=== PATIENT | female | born 1975 | race Caucasian/White ===

== ENCOUNTER 2022-07-21 11:36 | Outpatient (REF) | payer OTHER, SELFPAY ==
[2022-07-21 14:31] LABS: MANUAL DIFF FLAG NO
[2022-07-21 14:37] LABS: Basophils Absolute Auto 0.1 X10*3/uL (0.0-0.2); Basophils Percent Auto 0.6 % (0-2); Eosinophils Absolute Auto 0.1 X10*3/uL (0.0-0.4); Eosinophils Percent Auto 1.4 % (0-4); Hemoglobin 13.4 g/dl (12.0-16.0); Imm Gran Abs Auto 0.04 X10*3/uL (0.00-0.03); Imm Gran Pct Auto 0.4 % (0.0-0.4); Lymphocytes Absolute Auto 2.9 X10*3/uL (1.2-4.9); Lymphocytes Percent Auto 28.6 % (20-40); Mean Corpuscular HGB Conc 32.7 g/dl (31.0-35.0); Mean Corpuscular Volume 82.7 fL (80.0-98.0); Mean Platelet Volume 9.8 fL (9.4-12.3); Monocytes Absolute Auto 0.8 X10*3/uL (0.1-1.2); Neutrophils Absolute Auto 6.2 x10*3/uL (2.0-8.3); Platelet Count 436 X10*3/uL (160-400); Red Blood Count 4.96 X10*6/uL (4.20-5.50); Red Cell Distribution Width 13.9 % (11.0-16.0); White Blood Count 10.2 X10*3/uL (4.8-10.8)
[2022-07-21 14:54] LABS: Alanine Aminotransferase 24 U/L (0-31); Albumin Level 4.5 g/dL (3.5-5.0); Alkaline Phosphatase 90 U/L (39-117); Anion Gap 17 (12-20); Aspartate Amino Transferase 18 U/L (5-31); Bilirubin Total 0.3 mg/dL (0.0-1.0); Blood Urea Nitrogen 9 mg/dL (9-16); Calcium 10.1 mg/dL (8.4-10.2); Carbon Dioxide 26 mmol/L (22-29); Chloride 101 mmol/L (96-108); Cholesterol 209 mg/dL; Estimated Glomerular Filt Rate > 60; Glucose Fasting 111 mg/dL (60-99); HDL Cholesterol 46 mg/dL; LDL Cholesterol Calculated 135 mg/dl; Potassium 4.4 mmol/L (3.3-5.1); Sodium 140 mmol/L (135-145); Total Protein 7.7 g/dL (6.5-8.0); Triglycerides 140 mg/dL
[2022-07-21 15:16] LABS: Free T4 (Free Thyroxine) 1.14 ng/dL (0.71-1.85); Thyroid Stimulating Hormone 1.97 uIU/mL (0.32-4.0); Vitamin D 25-OH Total 17.9 ng/mL (>30)
[2022-07-21 15:18] LABS: Erythrocyte Sedimentation Rate 13 MM/HR (0-20)
[2022-07-21 15:34] LABS: Estimated Average Glucose 137 mg/dL; Hemoglobin A1c % 6.4 %
[2022-07-22 08:32] LABS: Lutenizing Hormone 5.4 mIU/mL
== END 2022-07-21 11:37 | disposition home or self-care (01) ==
LOC: HO.HMGCLDS 11:36
PROVIDERS: PCP Internal Medicine Medical Oncology; Visit Provider Internal Medicine Medical Oncology
DX: I10 Essential (primary) hypertension (principal); R47.01 Aphasia; I63.9 Cerebral infarction, unspecified; G93.40 Encephalopathy, unspecified
CPT/HCPCS: 36415; 80053; 80061; 82306; 83001; 83002; 83036; 84439; 84443; 85025; 85652

== ENCOUNTER 2022-07-22 09:10 | Outpatient (REF) | payer OTHER, SELFPAY ==
[2022-07-24 03:52] LABS: Follicle Stimulating Hormone 9.9 mIU/mL
== END 2022-07-22 09:11 | disposition home or self-care (01) ==
LOC: HO.HMGCLDS 09:10
PROVIDERS: PCP Internal Medicine Medical Oncology; Visit Provider Internal Medicine Medical Oncology
DX: I10 Essential (primary) hypertension (principal); R47.01 Aphasia; I63.9 Cerebral infarction, unspecified; G93.40 Encephalopathy, unspecified
CPT/HCPCS: 36415; 83001

== ENCOUNTER 2022-08-04 13:05 | Outpatient (REF) | payer OTHER, SELFPAY ==
--- NOTE | 2022-08-04 13:10 | EEG_ITS ---
The waking background activity consists of a moderate voltage, 10-hertz posterior alpha frequency that is seen symmetrically and attenuates well with eye opening while low-voltage fast frequencies predominate anteriorly. Photic stimulation is without activation. Hyperventilation was omitted. No focal, lateralizing, or paroxysmal discharges seen. IMPRESSION: This waking EEG is within normal limits. MD BRENTON Hamilton/FAVIAN / [phone]
== END 2022-08-04 13:06 | disposition home or self-care (01) ==
LOC: HO.NEURO 13:05
PROVIDERS: Visit Provider Internal Medicine Medical Oncology
DX: I63.9 Cerebral infarction, unspecified (principal); G93.40 Encephalopathy, unspecified
CPT/HCPCS: 95816

== ENCOUNTER 2022-08-18 15:43 | Outpatient (REF) | payer OTHER, SELFPAY ==
--- NOTE | ~2022-08-18 | MM_ITS ---
EXAMINATION: MM SCREENING DIGITAL BREAST TOMOSYNTHESIS, BILATERAL CLINICAL INFORMATION: Screening. Asymptomatic. Age 47. No prior breast imaging. The lifetime risk of breast cancer based on the Tyrer-Cuzick Model is 7%. COMPARISON: None (current study represents initial baseline exam). TECHNIQUE: Digital breast tomosynthesis is performed in both the craniocaudal and mediolateral oblique views along with computer-aided detection (CAD). Synthesized 2D images are generated from the tomosynthesis. FINDINGS: The breasts are almost entirely fatty (ACR BI-RADS breast composition Category a). There is no significant mass. No architectural abnormality or abnormal calcifications. The axilla are and skin contours are unremarkable. MM/MM tomosynthesis screening BI IMPRESSION: No mammographic evidence of malignancy. ASSESSMENT: BI-RADS 1: Negative RECOMMENDATION: Routine annual mammography screening. This patient's information was entered into a reminder system with a target due date for their next mammogram.
== END 2022-08-18 15:44 | disposition home or self-care (01) ==
LOC: HO.MAMMO 15:43
PROVIDERS: PCP Internal Medicine Medical Oncology; Visit Provider Internal Medicine Medical Oncology
DX: Z12.31 Encounter for screening mammogram for malignant neoplasm of breast (principal)
CPT/HCPCS: 77063; 77067

== ENCOUNTER 2023-01-20 06:55 | Outpatient (REF) | payer OTHER, SELFPAY ==
[2023-01-20 11:20] LABS: MANUAL DIFF FLAG NO
[2023-01-20 11:40] LABS: Basophils Absolute Auto 0.1 X10*3/uL (0.0-0.2); Basophils Percent Auto 0.8 % (0-2); Eosinophils Absolute Auto 0.2 X10*3/uL (0.0-0.4); Eosinophils Percent Auto 2.1 % (0-4); Hematocrit 38.1 % (37.0-47.0); Hemoglobin 12.2 g/dl (12.0-16.0); Imm Gran Abs Auto 0.03 X10*3/uL (0.00-0.03); Imm Gran Pct Auto 0.3 % (0.0-0.4); Lymphocytes Percent Auto 21.7 % (20-40); Mean Corpuscular Hemoglobin 27.2 pg (27.0-33.0); Mean Corpuscular Volume 84.9 fL (80.0-98.0); Mean Platelet Volume 10.8 fL (9.4-12.3); Monocytes Absolute Auto 0.7 X10*3/uL (0.1-1.2); Monocytes Percent Auto 7.2 % (2-11); Neutrophils Absolute Auto 6.1 x10*3/uL (2.0-8.3); Neutrophils Percent Auto 67.9 % (45-73); Platelet Count 354 X10*3/uL (160-400); Red Blood Count 4.49 X10*6/uL (4.20-5.50); Red Cell Distribution Width 14.6 % (11.0-16.0)
[2023-01-20 11:58] LABS: Estimated Average Glucose 137 mg/dL; Hemoglobin A1c % 6.4 %
[2023-01-20 12:30] LABS: Alanine Aminotransferase 14 U/L (0-31); Albumin Level 3.8 g/dL (3.5-5.0); Alkaline Phosphatase 71 U/L (39-117); Anion Gap 11 (12-20); Aspartate Amino Transferase 9 U/L (5-31); Bilirubin Total 0.3 mg/dL (0.0-1.0); Blood Urea Nitrogen 11 mg/dL (9-16); Calcium 9.1 mg/dL (8.4-10.2); Carbon Dioxide 28 mmol/L (22-29); Chloride 105 mmol/L (96-108); Cholesterol 176 mg/dL; Estimated Glomerular Filt Rate > 60; Glucose Fasting 138 mg/dL (60-99); HDL Cholesterol 45 mg/dL; LDL Cholesterol Calculated 108 mg/dl; Potassium 4.3 mmol/L (3.3-5.1); Sodium 140 mmol/L (135-145); Thyroid Stimulating Hormone 2.92 uIU/mL (0.32-4.0); Total Protein 6.4 g/dL (6.5-8.0); Triglycerides 117 mg/dL
[2023-01-22 03:39] LABS: Lutenizing Hormone 0.8 mIU/mL
== END 2023-01-20 06:56 | disposition home or self-care (01) ==
LOC: HO.HMGCLDS 06:55
PROVIDERS: PCP Internal Medicine Medical Oncology; Visit Provider Internal Medicine Medical Oncology
DX: E11.9 Type 2 diabetes mellitus without complications (principal); E23.6 Other disorders of pituitary gland; G93.40 Encephalopathy, unspecified; R51.9 Headache, unspecified
CPT/HCPCS: 36415; 80053; 80061; 83001; 83002; 83036; 83735; 84443; 85025

== ENCOUNTER 2023-01-22 07:12 | Outpatient (REF) | payer OTHER, SELFPAY ==
[2023-01-22 12:22] LABS: Cortisol Random 10.9 ug/dL
[2023-01-24 02:37] LABS: Prolactin 35.4 ng/mL
== END 2023-01-22 07:13 | disposition home or self-care (01) ==
LOC: HO.HMGCLDS 07:12
PROVIDERS: PCP Internal Medicine Medical Oncology; Visit Provider Internal Medicine Medical Oncology
DX: E23.6 Other disorders of pituitary gland (principal)
CPT/HCPCS: 36415; 82533; 84146

== ENCOUNTER → 2023-02-02 11:03 | Outpatient (BNVA) | payer OTHER, SELFPAY | PROVIDERS: PCP Internal Medicine Medical Oncology; Visit Provider Internal Medicine Endocrinology, Diabetes & Metabolism ==

== ENCOUNTER 2023-02-17 15:20 | Outpatient (REF) | payer OTHER, SELFPAY ==
[2023-02-17 16:27] LABS: Rheumatoid Factor < 13.0 IU/mL (<15.0)
[2023-02-17 16:44] LABS: Erythrocyte Sedimentation Rate 11 MM/HR (0-20)
[2023-02-20 14:03] LABS: Anti Nuclear Antibody Screen NEGATIVE (NEGATIVE)
[2023-02-23 14:18] LABS: DNAds, Crithidia Antibody Negative (Negative)
== END 2023-02-17 15:21 | disposition home or self-care (01) ==
LOC: HO.LAB 15:20
PROVIDERS: PCP Internal Medicine Medical Oncology; Visit Provider Psychiatry & Neurology Neurology
DX: F45.0 Somatization disorder (principal)
CPT/HCPCS: 36415; 85652; 86038; 86255; 86431

== ENCOUNTER 2023-03-11 07:51 | Outpatient (REF) | payer OTHER, SELFPAY ==
[2023-03-18 08:48] LABS: Adrenocorticotropic Hormone 9 pg/mL (6-50)
[2023-03-18 15:14] LABS: Cortisol 60 Minute 32.7 mcg/dL; Cortisol Baseline 27.8 mcg/dL
== END 2023-03-11 07:52 | disposition home or self-care (01) ==
LOC: HO.MDS 07:51
PROVIDERS: Visit Provider Internal Medicine Endocrinology, Diabetes & Metabolism
DX: E23.6 Other disorders of pituitary gland (principal)
CPT/HCPCS: 36415; 82024; 82533; 96374; J0834

== ENCOUNTER 2023-03-30 11:15 | Outpatient (AMB) | payer OTHER, SELFPAY ==
[2023-03-30 11:18] VITALS: BP 132/88; PULSE 76; BMI 39.0
--- NOTE | 2023-03-30 11:18 | A.OFFVIS_ITS ---
Intake Vital Signs 03/30/23 11:18 Height 5 ft 5.59 in Weight 238 lb 12.17 oz BMI 39.0 BP 132/88 Blood Pressure Location Rt brachial Position Sitting Pulse 76 Pulse Source Pulse Oximeter Intake Visit Reasons: Empty Sella Intake Note: Patient present for Empty Sella Follow up visit. Drug Enforcement Agent Required: No Accompanied by: Self / Same As Patient Allergies sulfamethoxazole [From BACTRIM] Allergy (Severe, Verified 03/30/23 11:20) HIVES trimethoprim [From BACTRIM] Allergy (Severe, Verified 03/30/23 11:20) HIVES amoxicillin Allergy (Intermediate, Verified 03/30/23 11:20) rash Penicillins [PENICILLINS] Allergy (Intermediate, Verified 03/30/23 11:20) HIVE promethazine [From PHENERGAN] Allergy (Intermediate, Verified 03/30/23 11:20) AGITATION plastic tape Allergy (Mild, Uncoded 03/30/23 11:20) blisters HPI HPI Comments History of Present Illness Details This is a 48-year-old female referred to endocrinology for evaluation of empty sella. Patient was discovered to have a partially empty sella on MRI. She denies any symptoms of adrenal insufficiency. Her a.m. cortisol level was sufficient. She denies any symptoms of hypothyroidism. has gained weight had uterine ablation 15 yrs ago She denies any galactorrhea has slightly elevated prolactin. An estradiol level was low as well. [facility] Medical History (Updated 02/02/23 @ 11:19 by Joe Robles MD) Empty sella Surgical History History of endometrial ablation History of surgery Hx of cholecystectomy Hx of right knee surgery Hx of tonsillectomy Family History Mother Hypothyroidism High blood pressure Father Diabetes CPD (cephalo-pelvic disproportion) Sleep apnea Social History Alcohol intake: never Patient Tobacco Use Status: Never used Tobacco Substance Use Type: Marijuana Physical Exam Vital Signs: BMI result Body Mass Index 39.0 Assessment & Plan Assessment & Plan (1) Empty sella: Code(s): E23.6 - Other disorders of pituitary gland Plan: This is a 48-year-old white female found to have a partially empty sella syndrome on MRI. . She has slightly elevated prolactin level is causing suppression of the gonadal axis. There were no masses seen on the MRI in the pituitary. Plan is to get a 24 hour urine for free cortisol creatinine to rule out Edilson syndrome. Assuming above is normal will start Dostinex 0.25 mg twice a week the lower prolactin and hopefully restore estuardo levels. I did tell the patient to follow up with Neurology as well. I went over side effects of cabergoline she has nausea, lightheadedness and rare risk of heart valve problems as well as compulsive disorder Orders: Orders Cortisol, Free 24Hr Urine Today E23.6 - Other disorders of pituitary gland Creatinine, 24 Hr Group Today E23.6 - Other disorders of pituitary gland Adrenocorticotropic Hormone Today E23.6 - Other disorders of pituitary gland Medications: New cabergoline 0.25 mg (1/2 x 0.5 mg) PO 2XW 10 tabs 4RF Coding Level of Care Code Est Pt Level 3 (38865) Diagnoses Empty sella E23.6
== END 2023-03-30 12:07 | disposition home or self-care (01) ==
PROVIDERS: PCP Internal Medicine Medical Oncology; Visit Provider Internal Medicine Endocrinology, Diabetes & Metabolism
DX: E23.6 Other disorders of pituitary gland (principal)
CPT/HCPCS: 99213

== ENCOUNTER → 2023-03-30 11:15 | Outpatient (BNVA) | payer OTHER, SELFPAY | PROVIDERS: Visit Provider Internal Medicine Endocrinology, Diabetes & Metabolism ==

== ENCOUNTER 2023-04-03 08:36 | Outpatient (REF) | payer OTHER, SELFPAY ==
[2023-04-03 10:41] LABS: Creatinine, mg/dL 55.51
[2023-04-04 07:16] LABS: Creatinine, 24Hr Urine 1.5 G/Day (1.0-2.0); Total Volume 24 Hour Urine 2725 mL
[2023-04-09 14:39] LABS: Adrenocorticotropic Hormone 11 pg/mL (6-50)
[2023-04-12 12:08] LABS: Cortisol Free, 24 Hr Urine 40.7 mcg/24 h (4.0-50.0); Creatinine, 24 Hr Urine 1.53 g/24 h (0.50-2.15); Total Volume, 24 Hr Urine 2725 mL
== END 2023-04-03 08:37 | disposition home or self-care (01) ==
LOC: HO.LAB 08:36
PROVIDERS: PCP Internal Medicine Medical Oncology; Visit Provider Internal Medicine Endocrinology, Diabetes & Metabolism
DX: E23.6 Other disorders of pituitary gland (principal)
CPT/HCPCS: 36415; 82024; 82530; 82570

== ENCOUNTER 2023-05-20 16:32 | Outpatient (REF) | payer OTHER, SELFPAY ==
[2023-05-24 09:59] LABS: Ceruloplasmin 28 mg/dL (18-53)
[2023-06-04 19:33] LABS: Copper RBC 0.69 mg/L (0.53-0.91)
== END 2023-05-20 16:33 | disposition home or self-care (01) ==
LOC: HO.LAB 16:32
PROVIDERS: PCP Internal Medicine Medical Oncology; Visit Provider Psychiatry & Neurology Neurology
DX: G93.40 Encephalopathy, unspecified (principal)
CPT/HCPCS: 36415; 82390; 82525

== ENCOUNTER 2023-09-21 07:42 | Emergency (ER) | payer OTHER, SELFPAY ==
--- NOTE | ~2023-09-21 | MR_ITS ---
EXAMINATION: MR BRAIN WITHOUT CONTRAST CLINICAL INFORMATION: Right arm weakness. Rule out stroke. COMPARISON: None available. TECHNIQUE: Multiplanar, multisequence imaging of the brain was performed without intravenous contrast. FINDINGS: There is no acute infarction, hemorrhage, mass, or extra-axial fluid collection. The ventricles are normal in size without hydrocephalus. The brain parenchyma signal appears essentially normal. The sella is partially empty. The major arterial flow voids appear preserved at the skull base. The orbital contents appear normal. Incidentally noted is abnormal soft tissue thickening within the nasopharynx. Nonenlarged retropharyngeal lymph nodes are also present bilaterally. MR/MR head/brain wo con IMPRESSION: No acute intracranial abnormality identified. Specifically, no infarct or mass is seen. Incidentally noted abnormal soft tissue thickening within the nasopharynx which may represent hypertrophy of the adenoids which is unexpected for a patient of this age. Small retropharyngeal lymph nodes are also present bilaterally. ENT follow-up/direct visual inspection is recommended.
[2023-09-21 07:48] VITALS: BP 169/98; PULSE 73; RESP 19; TEMP 36.3; O2SAT 98; BMI 39.5
--- NOTE | 2023-09-21 10:00 | ED.GENADULT ---
HPI - General Adult General Chief complaint: General Medical Stated complaint: R Arm Numbness Time Seen by Provider: 09/21/23 09:21 Source: patient and other (Patient's PCP, Dr. Rivera) Mode of arrival: ambulatory Limitations: no limitations History of Present Illness HPI narrative: 48-year-old female followed by our neurologist Dr. Talavera for possible TIA versus stroke versus seizure who presents emergency department for evaluation right wrist pain, numbness and weakness. I did obtain the emergency department record from [facility] dated 09/18/2023 (3 days prior). The patient was seen at [facility] on 09/18/2023 for evaluation of sudden onset of right forearm wrist and hand pain which started at 01:00 hours while she was sleeping in bed. She denied any trauma, she does not believe that she was sleeping in an unusual position. The ED provider did consult the neurologist who suggested a CT of the chest to rule out possible mass that could be applying pressure to the brachial plexus but this was negative. Patient also had a CT scan of the head and neck which was unremarkable. She was also ruled out for DVT. She was diagnosed with cervical radiculopathy and started on Medrol Dosepak 4 mg and oxycodone. The patient states that since starting the steroids she now has a pins and needle sensation that is returning to her forearm and wrist but she still has significant pain and limited range of motion of her wrist and hand secondary to discomfort. She also states that she is having severe headache which is consistent with her headache syndrome. This is not been relieved by naproxen or by the oxycodone that she has been taking. Patient was seen by Dr. Dwyer who advised her to go to the emergency department for evaluation and possible MRI. Related Data Home Medications Medication Instructions Recorded Confirmed loratadine 10 mg tablet (Allergy 10 mg PO DAILY 07/04/21 Relief (loratadine)) topiramate 25 mg tablet 25 mg PO DAILY 03/30/23 Previous Rx's Medication Instructions Recorded cabergoline 0.5 mg tablet 0.25 mg (1/2 x 0.5 mg) PO 2XW #10 03/30/23 tabs morphine 15 mg immediate release 15 mg PO Q4-6H PRN pain #10 tabs 09/21/23 tablet ondansetron 4 mg disintegrating 4 mg PO Q6-8H PRN nausea and 09/21/23 tablet vomiting #14 tabs Allergies Allergy/AdvReac Type Severity Reaction Status Date / Time sulfamethoxazole Allergy Severe HIVES Verified 09/21/23 07:47 [From BACTRIM] trimethoprim [From BACTRIM] Allergy Severe HIVES Verified 09/21/23 07:47 amoxicillin Allergy Intermediate rash Verified 09/21/23 07:47 Penicillins [PENICILLINS] Allergy Intermediate HIVE Verified 09/21/23 07:47 promethazine [From PHENERGAN] Allergy Intermediate AGITATION Verified 09/21/23 07:47 plastic tape Allergy Mild blisters Uncoded 09/21/23 07:47 Review of Systems Review of Systems: Yes all other systems are reviewed and are negative [facility] Past Medical History [facility] Narrative: Past medical history: Patient states that she sees our neurologist Dr. Talavera is being evaluated for possible stroke verses TIA versus seizures. She is taking topiramate but Dr. Lutz advised to stop this medication yesterday. She does have chronic headache which she takes naproxen and another medication for which she can not recall the name of at this time. She denies tobacco and alcohol use. She does smoke marijuana daily for her headaches. Onset Date is defined in the Problem List Problems that require an onset date and time if occurred within 24 hrs of arrival to the ED Aortic Dissection and Rupture; Neurologic impairment; Cardiopulmonary Arrest; Endotracheal Intubation; Insertion or Replacement of Mechanical Circulatory Assist Device Medical History (Updated 09/21/23 @ 13:47 by Neo Perez MD) Empty sella Surgical History (Updated 07/13/23 @ 15:15 by Maddy Tineo) Hx of tonsillectomy History of surgery Hx of right knee surgery History of endometrial ablation Hx of cholecystectomy Family History Family History (System 07/13/23 @ 15:15 by Maddy Tineo) Mother Hypothyroidism High blood pressure Father Diabetes CPD (cephalo-pelvic disproportion) Sleep apnea Social History Social History (System 07/13/23 @ 15:15 by Maddy Tineo) Alcohol intake: never Patient Tobacco Use Status: Never used Tobacco Smoked in Last 30 Days: No Use of substances other than those prescribed or required for medical reasons: No Substance Use Type: Marijuana Advance Directives: No Advance Directives Information Provided: Yes Patient : No Physical Exam ED Vital Signs: Vital Signs - 24 hr 09/21/23 07:48 09/21/23 13:05 Temperature 97.4 F 96.6 F L Pulse Rate 73 59 Respiratory Rate 19 16 Blood Pressure 169/98 H 185/101 H Pulse Oximetry 98 96 Oxygen Delivery Method Room Air Room Air BMI result Body Mass Index 39.5 Vital signs revealed an elevated blood pressure of 169/98 otherwise unremarkable Exam General: Awake, alert in no distress Head: Normocephalic, atraumatic. No tenderness palpation of the temporal regions of her scalp EENT: PERRL, Lids normal, sclera normal, conjunctiva normal, nose normal , ears normal, throat without erythema or exudates Neck: Supple, no adenopathy, Lung: breath sounds symmetric, no wheezing, rales or rhonchi Chest: symmetric movement, nontender Heart: regular rate and rhythm, normal S1, S2 no murmurs or rubs Abdomen: soft, non-tender, nondistended, normal bowel sounds Neuro: General: Awake and alert, answers all questions appropriately, oriented to person and place Cranial nerves: 2 through 12 are intact Strength: Left upper extremity: normal Right upper extremity: Patient is able to lift both arms up against gravity she is able to supinate and pronate both arms without difficulty. She has pain with passive extension of the right wrist and passive movement of the fingers. Patient does not actively flex or extend her wrist or finger secondary to pain. She does have tenderness with palpation from her mid forearm to her wrist. Skin is normal with no erythema, increased warmth or lesion Medications Administered Discontinued Medications Generic Name Dose Route Start Last Admin Trade Name Kennethq PRN Reason Stop Dose Admin Diphenhydramine HCl 50 mg 09/21/23 10:09/21/23 10:50 Diphenhydramine Hcl 50 Mg/Ml Vial IVPUSH 09/21/23 10:05 50 mg ONCE STA Administration Sodium Chloride 1,000 mls @ 999 mls/hr 09/21/23 10:01 09/21/23 11:51 Ns IV 09/21/23 11:01 Infused .Q1H1M STA Infusion Ketorolac Tromethamine 15 mg 09/21/23 10:04 09/21/23 10:50 Ketorolac Tromethamine 15 Mg/Ml Vial IVPUSH 09/21/23 10:05 15 mg ONCE STA Administration Metoclopramide HCl 10 mg 01/09/24 10:04 09/21/23 10:50 Metoclopramide Hcl 10 Mg/2 Ml Vial IVPUSH 09/21/23 10:05 10 mg ONCE STA Administration Morphine Sulfate 4 mg 09/21/23 13:18 09/21/23 13:27 Morphine Sulfate 4 Mg/Ml Cartridge IVPUSH 09/21/23 13:19 4 mg ONCE STA Administration Protocol Medical Decision Making Medical Decision Making MDM Narrative: 48-year-old female history of nonspecific headache, being evaluated by our neurologist Dr. Alcantar for possible stroke versus TIA versus seizure who was seen at [facility] 3 days prior for sudden onset right wrist and hand pain with numbness in the wrist and hand with pain worse with movement. Patient is also complaining of a headache this is consistent with her chronic headache syndrome. Patient did have extensive workup at [facility] which included CT scan of the head and neck which was negative, CT scan of the chest which revealed no brachial plexus mass and normal laboratory evaluation. Patient was seen by her PCP and referred to the emergency department for evaluation and possible MRI of the brain to rule out stroke. Patient's vital signs did reveal an elevated blood pressure otherwise unremarkable. Patient seems to have symptoms there limited to her hand wrist and mid forearm which I do not think is consistent with a stroke. The patient states that since starting methylprednisolone at [facility] has had a return of pins and needle sensation in her wrist and forearm but is still having pain with movement. She also has a severe headache which is not relieved by naproxen oxycodone. I ordered the following evaluation: CBC, CMP, PTT, CK, ESR, CRP The patient's headache will be treated with Toradol 15 mg IV, Reglan 10 mg IV, Benadryl 50 mg IV and normal saline x1 L At this time, I do not know if her symptoms are consistent with a stroke and a more consistent with a peripheral neuropathy. I did discuss the patient's presentation with her neurologist, Dr. Talavera, he saw the patient in the emergency department and is requesting an MRI of the brain to rule out frontal stroke. 13:37 Patient's laboratory evaluation was unremarkable including normal ESR and CRP. CT scan of the brain did not reveal any stroke which is reassuring. There is an incidental findings soft tissue thickening within the nasopharynx which may represent hypertrophy of the adenoids which is unexpected for a patient of this age. Small retropharyngeal lymph nodes are also present bilaterally. ENT follow-up/direct visual inspection is recommended . Differential Diagnosis Differential Diagnoses: The differential diagnosis associated with the presentation includes Differential diagnosis includes but is not limited to musculoskeletal injury, cervical radiculopathy, peripheral neuropathy Admission/Observation Consideration of admission/observation: Escalation of care including admission/observation considered Consult Healthcare Provider Management of the patient was discussed with: [employer]er (Neurology, Dr. Talavera) Lab Data MDM Lab Attestation statement: I reviewed the patient's lab results. My interpretation patient's laboratory evaluation is as follows: WBCs elevated 18,200-this is most likely secondary to methylprednisolone. ESR was normal. CRP was normal at 0.39. CK was normal at 21. CMP was unremarkable. 09/21/23 10:44 09/21/23 10:44 Labs: Lab Results 09/21/23 Range/Units 10:44 WBC 18.2 H (4.8-10.8) X10*3/uL RBC 4.66 (4.20-5.50) X10*6/uL Hgb 12.7 (12.0-16.0) g/dl Hct 39.2 (37.0-47.0) % MCV 84.1 (80.0-98.0) fL MCH 27.3 (27.0-33.0) pg MCHC 32.4 (31.0-35.0) g/dl RDW 14.0 (11.0-16.0) % Plt Count 381 (160-400) X10*3/uL MPV 9.9 (9.4-12.3) fL Immature Gran % (Auto) 1.2 H (0.0-0.4) % Neut % (Auto) 77.8 H (45-73) % Lymph % (Auto) 13.8 L (20-40) % Monona % (Auto) 6.8 (2-11) % Eos % (Auto) 0.1 (0-4) % Baso % (Auto) 0.3 (0-2) % Lymph # (Auto) 2.5 (1.2-4.9) X10*3/uL Monona # (Auto) 1.2 (0.1-1.2) X10*3/uL Eos # (Auto) 0.0 (0.0-0.4) X10*3/uL Baso # (Auto) 0.1 (0.0-0.2) X10*3/uL Abs Immat Gran (auto) 0.21 H (0.00-0.03) X10*3/uL Absolute Neuts (auto) 14.2 H (2.0-8.3) x10*3/uL Absolute Nucleated RBC 0.000 (0.0-0.012) X10*3/uL Nucleated RBC % (auto) 0.0 (0.0-0.2) /100WBC ESR 8 (0-20) MM/HR APTT 28.2 (26.0-36.4) SEC Sodium 140 (135-145) mmol/L Potassium 4.0 (3.3-5.1) mmol/L Chloride 108 (96-108) mmol/L Carbon Dioxide 23 (22-29) mmol/L Anion Gap 13 (12-20) BUN 16 (9-16) mg/dL Creatinine 0.72 (0.5-1.4) mg/dL Estim Creat Clear Calc 114.8 Estimated GFR > 60 Random Glucose 114 (60-115) mg/dL Calcium 9.3 (8.4-10.2) mg/dL Total Bilirubin 0.2 (0.0-1.0) mg/dL AST 13 (5-31) U/L ALT 16 (0-31) U/L Alkaline Phosphatase 74 (39-117) U/L Total Creatine Kinase 21 L (26-140) U/L C-Reactive Protein 0.39 (< or = 0.50) mg/dL Total Protein 7.4 (6.5-8.0) g/dL Albumin 4.1 (3.5-5.0) g/dL Radiology Impression Discussion of test interpretation with radiology: I have reviewed the radiologist's reading. Radiologist Impression: MR head/brain wo con IMPRESSION: No acute intracranial abnormality identified. Specifically, no infarct or mass is seen. Incidentally noted abnormal soft tissue thickening within the nasopharynx which may represent hypertrophy of the adenoids which is unexpected for a patient of this age. Small retropharyngeal lymph nodes are also present bilaterally. ENT follow-up/direct visual inspection is recommended. Dictated By: LINDSEY CUADRA MD Independent Historian Clinical information obtained from an independent historian. History obtained from or confirmed by: Spouse External Record Review External record reviewed: Outpatient record (ED note from [facility] emergency depart) Prescription Management I considered prescription management with: Pain Medication Discharge Plan Discharge Clinical Impression: Right wrist pain, Right hand pain, Headache Patient Disposition: Home, Self-Care Additional Instructions: Your blood work was unremarkable. The MRI of your brain did not reveal any stroke which is reassuring. At this time I suspect that the symptoms in your right wrist and arm are due to the pinched nerve in your forearm which should improve with the oral steroids prescribed from [facility]. Stop taking oxycodone. Take morphine 15 mg pills, 1 pill every 6 hours as needed for pain. This medication will make you sleepy, do not drive or work while taking this medication. Morphine is a narcotic medication and can be addicting. If you are concerned about addiction you can ask the pharmacist for less pills or do not get this prescription filled. Take Zofran ODT 4 mg pills, 1 pill dissolved in your mouth every 8 hours as needed for nausea and vomiting. Follow-up with your doctor in 2 days. Please return to the emergency department if your symptoms get worse or if you develop any symptoms that are concerning to you. The MRI did reveal an incidental findings and the radiologist recommended that you follow-up with the ENT, you should discuss this with Dr. Lutz. The radiology impression is below: MR head/brain wo con IMPRESSION: No acute intracranial abnormality identified. Specifically, no infarct or mass is seen. Incidentally noted abnormal soft tissue thickening within the nasopharynx which may represent hypertrophy of the adenoids which is unexpected for a patient of this age. Small retropharyngeal lymph nodes are also present bilaterally. ENT follow-up/direct visual inspection is recommended. Dictated By: LINDSEY CUADRA MD Prescriptions: New morphine 15 mg tablet 15 mg PO Q4-6H PRN (Reason: pain) Qty: 10 0RF Rx Instructions: The patient may ask for partial fill; Partial Fill upon patient request. ondansetron 4 mg tablet,disintegrating 4 mg PO Q6-8H PRN (Reason: nausea and vomiting) Qty: 14 0RF No Action loratadine [Allergy Relief (loratadine)] 10 mg tablet 10 mg PO DAILY topiramate 25 mg tablet 25 mg PO DAILY cabergoline 0.5 mg tablet 0.25 mg PO 2XW Qty: 10 4RF
[2023-09-21] MEDS: diphenhydrAMINE HCL 50 MG/ML VIAL IVPUSH (10:50)
[2023-09-21] MEDS: 0.9 % Sodium Chloride 1,000 ML 999 ML IV (10:50)
[2023-09-21] MEDS: Metoclopramide HCl 10 MG/2 ML VIAL IVPUSH (10:50)
[2023-09-21] MEDS: Ketorolac Tromethamine 15 MG/ML VIAL IVPUSH (10:50)
--- NOTE | 2023-09-21 10:50 | PC.NURSE ---
Dr. Palacio bedside assessing pt at this time. 20gIV placed in the left AC - labs drawn and sent to lab. medication administered per provider order. pt's partner for support at this time.
--- NOTE | 2023-09-21 10:51 | P.CNNE_ITS ---
History of Present Illness Data of Consult Service Date: 09/21/23 Primary Care Provider: Joe Dwyer MD [facility] Reason for consult: Right hand weakness 48 years old woman who came to [facility] on September 18 with complaints of severe right hand for arm wrist pain and weakness. She woke up with this. She was evaluated with a CT of brain and neck and no problem was noted. She was not having any cold or flu-like illness. With no particular diagnosis, she saw her primary care physician yesterday and with same complaints sent to emergency room for further evaluation. Her main concern at this time was right hand weakness stating that she was not able to move right hand at all. There was no history of recent trauma. Review of Systems Review of Systems: As in HPI [facility] Past Medical History Medical History (Updated 09/21/23 @ 10:58 by Nicolette Talavera MD) Empty sella Family History Family History (System 07/13/23 @ 15:15 by Maddy Tineo) Mother Hypothyroidism High blood pressure Father Diabetes CPD (cephalo-pelvic disproportion) Sleep apnea Surgical History Surgical History (Updated 07/13/23 @ 15:15 by Maddy Tineo) Hx of tonsillectomy History of surgery Hx of right knee surgery History of endometrial ablation Hx of cholecystectomy Social History Social History (System 07/13/23 @ 15:15 by Maddy Tieno) Alcohol intake: never Patient Tobacco Use Status: Never used Tobacco Substance Use Type: Marijuana Advance Directives: No Advance Directives Information Provided: Yes Meds Allergies Allergy/AdvReac Type Severity Reaction Status Date / Time sulfamethoxazole Allergy Severe HIVES Verified 09/21/23 07:47 [From BACTRIM] trimethoprim [From BACTRIM] Allergy Severe HIVES Verified 09/21/23 07:47 amoxicillin Allergy Intermediate rash Verified 09/21/23 07:47 Penicillins [PENICILLINS] Allergy Intermediate HIVE Verified 09/21/23 07:47 promethazine [From PHENERGAN] Allergy Intermediate AGITATION Verified 09/21/23 07:47 plastic tape Allergy Mild blisters Uncoded 09/21/23 07:47 Active Medications: Current Medications Sodium Chloride (Ns) 1,000 mls @ 999 mls/hr IV .Q1H1M STA Stop: 09/21/23 11:01 Last Admin: 09/21/23 10:50 Dose: 999 mls/hr Home Medications Medication Instructions Recorded Confirmed Last Taken Type loratadine 10 mg tablet (Allergy 10 mg PO DAILY 07/04/21 Unknown History Relief (loratadine)) topiramate 25 mg tablet 25 mg PO DAILY 03/30/23 Unknown History Physical Exam Vital Signs: Vital Signs: Last Vital Signs Temp 97.4 F 09/21/23 07:48 Pulse 73 09/21/23 07:48 Resp 19 09/21/23 07:48 BP 169/98 H 09/21/23 07:48 Pulse Ox 98 09/21/23 07:48 O2 Del Method Room Air 09/21/23 07:48 BMI result Body Mass Index 39.5 Neuro: Other: She is alert and awake with normal spontaneity of speech fluency comprehension and affect. Face is symmetrical. Visual arce are full. Right arm was in sling. I removed the sling and she was able to move her right arm at shoulder and elbow. She was able to lift her arm above her head up to 90 degrees. Elbow flexion and extension were mildly weak. She did not provide any movement of fingers right hand infection or extension. She stated that right hand was numb. Deep tendon reflexes were trace to absent with flexion plantars. Assessment and Plan (1) Hand weakness: Status: Acute 48 years old woman who woke up with severe right upper extremity pain and hand weakness. CTA of brain and neck done at [facility] have not revealed any significant abnormality. Presently she provide is no movement and right hand. Differential diagnosis would include cervical radiculopathy, though no significant lesion was noted and cervical spine CT scan, or plexopathy ([place] syndrome), which would require EMG nerve conduction study. Because of atypical presentation, I would also recommend doing a brain MRI to rule out small left frontal stroke that sometime could present with hand weakness but that would not explain the pain. If MRIs okay, she should have EMG nerve conduction study of right upper extremity in outpatient setting for further evaluation and PT OT consultation for weakness. He should use a brace in right hand. I am not sure if the sling is needed. Procedures Date of Service Date of Service: 09/21/23
[2023-09-21 10:59] LABS: MANUAL DIFF FLAG NO
[2023-09-21 11:01] LABS: Basophils Absolute Auto 0.1 X10*3/uL (0.0-0.2); Basophils Percent Auto 0.3 % (0-2); Eosinophils Percent Auto 0.1 % (0-4); Hematocrit 39.2 % (37.0-47.0); Hemoglobin 12.7 g/dl (12.0-16.0); Imm Gran Abs Auto 0.21 X10*3/uL (0.00-0.03); Imm Gran Pct Auto 1.2 % (0.0-0.4); Lymphocytes Absolute Auto 2.5 X10*3/uL (1.2-4.9); Lymphocytes Percent Auto 13.8 % (20-40); Mean Corpuscular HGB Conc 32.4 g/dl (31.0-35.0); Mean Corpuscular Hemoglobin 27.3 pg (27.0-33.0); Mean Corpuscular Volume 84.1 fL (80.0-98.0); Mean Platelet Volume 9.9 fL (9.4-12.3); Monocytes Absolute Auto 1.2 X10*3/uL (0.1-1.2); Monocytes Percent Auto 6.8 % (2-11); Neutrophils Absolute Auto 14.2 x10*3/uL (2.0-8.3); Neutrophils Percent Auto 77.8 % (45-73); Platelet Count 381 X10*3/uL (160-400); Red Blood Count 4.66 X10*6/uL (4.20-5.50); White Blood Count 18.2 X10*3/uL (4.8-10.8)
[2023-09-21 11:09] LABS: Partial Thromboplastin Time 28.2 SEC (26.0-36.4)
--- NOTE | 2023-09-21 11:17 | PC.NURSE ---
MRI screen filled out/faxed/placed in pt's chart.
[2023-09-21 11:20] LABS: C Reactive Protein 0.39 mg/dL (< or = 0.50)
[2023-09-21 11:23] LABS: Alanine Aminotransferase 16 U/L (0-31); Albumin Level 4.1 g/dL (3.5-5.0); Alkaline Phosphatase 74 U/L (39-117); Anion Gap 13 (12-20); Aspartate Amino Transferase 13 U/L (5-31); Bilirubin Total 0.2 mg/dL (0.0-1.0); Blood Urea Nitrogen 16 mg/dL (9-16); Calcium 9.3 mg/dL (8.4-10.2); Carbon Dioxide 23 mmol/L (22-29); Chloride 108 mmol/L (96-108); Creatinine Clr Calc Pharmacy 114.8; Estimated Glomerular Filt Rate > 60; Glucose Random 114 mg/dL (60-115); Sodium 140 mmol/L (135-145); Total Protein 7.4 g/dL (6.5-8.0)
[2023-09-21 11:39] LABS: Erythrocyte Sedimentation Rate 8 MM/HR (0-20)
--- NOTE | 2023-09-21 12:35 | PC.NURSE ---
pt to MRI at this time.
[2023-09-21 13:05] VITALS: BP 185/101; PULSE 59; RESP 16; TEMP 35.9; O2SAT 96
--- NOTE | 2023-09-21 13:06 | PC.NURSE ---
pt returned from MRI - vs up to date. pt remains hypertensive. pt c/o 06/22 ARMENTA - will notify provider. respirations remain even and unlabored. partner bedside for support.
[2023-09-21] MEDS: Morphine Sulfate 4 MG/ML CARTRIDGE IVPUSH (13:27)
--- NOTE | 2023-09-21 13:30 | PC.NURSE ---
provider aware of pt's increase in pain - medication administered per provider order. will reassess.
== END 2023-09-21 14:20 | disposition home or self-care (01) ==
PROVIDERS: Emergency Provider Emergency Medicine Emergency Medical Services; PCP Internal Medicine Medical Oncology
DX: M25.531 Pain in right wrist (principal); R51.9 Headache, unspecified; R20.0 Anesthesia of skin; R11.2 Nausea with vomiting, unspecified; Z79.899 Other long term (current) drug therapy
CPT/HCPCS: 36415; 70551; 80053; 82550; 85025; 85652; 85730; 86140; 96361; 96374; 96375; 99284; 99285; J1200; J1885; J2270; J2765